=== PATIENT | female | born 1990 | race African-American/Black ===

== ENCOUNTER 2020-06-07 17:42 | Emergency (ER) | payer BC ==
[~2020-06-07] VITALS: Ht 165.1 cm; Wt 95.4 kg
--- NOTE | 2020-06-07 18:39 | PHYS DOC ---
Past History Past Medical History: A-Fib, Migraines Alcohol Use: None Adult General Chief Complaint Chief Complaint: HEADACHE HPI HPI Patient is a 29 year old female who presents with headache over the past 2 days. Patient states that she has had headaches that affect her forehead region off and on for her entire life, however states that this headache is different in that this headache has presented around the left orbit along with ringing in both the ears and also visual changes that she describes as an orange tint to the left eye, patient denies blurriness. Patient states that she had no relief with taking [id number] naproxen, stating she took 2 220 mg tablets at 4 AM this morning without relief. Patient states her 10 is a 7/10 pain on a 1-10 pain scale. Patient denies nausea, fatigue, muscle or body aches, new loss of taste or new loss of smell, diarrhea, vomiting, congestion or runny nose. Patient also denies cough or shortness of breath, chest pains, or swelling of her extremities. Patient denies any urinary problems, denies vaginal discharge, denies STI concerns. Patient denies back pains, pain in her joints, skin rashes, increased urination or increased thirst. She denies swelling of her glands, recent depressions, recent anxieties, homicidal or suicidal ideations. Patient denies having the COVID-19 virus and does not wish to be tested today. Patient denies a history of illicit drug use, denies smoking, denies drinking alcohol. Review of Systems Review of Systems Constitutional: Denies fever or chills Eyes: Denies change in visual acuity, redness, or eye pain, complains of seeing a orange tent from the right eye, denies blurriness HENT: Denies nasal congestion or sore throat, complains of ringing in the ears from both ears Respiratory: Denies cough or shortness of breath Cardiovascular: Denies chest pain, denies palpitations. GI: Denies abdominal pain, nausea, vomiting, bloody stools or diarrhea : Denies dysuria or hematuria [] Musculoskeletal: Denies back pain or joint pain [] Integument: Denies rash or skin lesions [] Neurologic: Complains of headache focused around the left orbit rating 7/10 on a 1-10 pain scale Psychiatric: Patient denies recent anxieties, depressions, homicidal or suicidal ideation. All other systems were reviewed and found to be within normal limits, except as documented in this note. Family History Family History Patient states maternal grandfather had pacemaker otherwise no significant family history. Current Medications Current Medications Patient reports taking 81 mg aspirin and 50 mg of metoprolol as needed when she felt her heart was doing flip-flops. Allergies Allergies Patient denies allergies to medications. Physical Exam Physical Exam Constitutional: Well developed, well nourished, no acute distress, non-toxic appearance. Patient photophobic. HENT: Normocephalic, atraumatic, bilateral external ears normal, oropharynx moist, no oral exudates, nose normal. Partial cerumen impaction bilateral ears however TMs visualized normal without bulging, intact. Eyes: PERRLA, EOMI, conjunctiva normal, no discharge. Bilateral pupils 4 mm Neck: Normal range of motion, no tenderness, supple, no stridor. [] Cardiovascular:Heart rate regular rhythm, no murmur [] Lungs & Thorax: Bilateral breath sounds clear to auscultation [] Abdomen: Bowel sounds normal, soft, no tenderness, no masses, no pulsatile masses. [] Skin: Warm, dry, no erythema, no rash. [] Back: No tenderness, no CVA tenderness. [] Extremities: No tenderness, no cyanosis, no clubbing, ROM intact, no edema. [] Neurologic: Alert and oriented X 3, normal motor function, normal sensory function, no focal deficits noted. [] Psychologic: Affect normal, judgement normal, mood normal. [] Current Patient Data Vital Signs Vital Signs Date Time Temp Pulse Resp B/P (MAP) Pulse Ox O2 Delivery O2 Flow Rate FiO2 06/07/20 17:55 98.3 88 16 159/85 (109) 98 Room Air Lab Results Laboratory Tests Test 06/07/20 18:51 06/07/20 18:52 06/07/20 19:00 Urine Collection Type Unknown Urine Color Yellow Urine Clarity Clear Urine pH 8.0 Urine Specific [place] 1.020 Urine Protein Neg Urine Glucose (UA) Neg mg/dL Urine Ketones (Stick) Neg mg/dL Urine Blood Trace Urine Nitrite Neg Urine Bilirubin Neg Urine Urobilinogen Dipstick 0.2 mg/dL Urine Leukocyte Esterase Neg Urine RBC 0 /HPF Urine WBC 0 /HPF Urine Squamous Epithelial Cells Mod /LPF Urine Bacteria 0 /HPF Bedside Urine HCG, Qualitative hcg negative White Blood Count 6.0 x10^3/uL Red Blood Count 4.97 x10^6/uL Hemoglobin 14.7 g/dL Hematocrit 44.9 % Mean Corpuscular Volume 91 fL Mean Corpuscular Hemoglobin 30 pg Mean Corpuscular Hemoglobin Concent 33 g/dL Red Cell Distribution Width 14.4 % Platelet Count 278 x10^3/uL Neutrophils (%) (Auto) 62 % Lymphocytes (%) (Auto) 28 % Monocytes (%) (Auto) 8 % Eosinophils (%) (Auto) 1 % Basophils (%) (Auto) 1 % Neutrophils # (Auto) 3.7 x10^3uL Lymphocytes # (Auto) 1.7 x10^3/uL Monocytes # (Auto) 0.4 x10^3/uL Eosinophils # (Auto) 0.1 x10^3/uL Basophils # (Auto) 0.1 x10^3/uL Sodium Level 140 mmol/L Potassium Level 4.1 mmol/L Chloride Level 103 mmol/L Carbon Dioxide Level 29 mmol/L Anion Gap 8 Blood Urea Nitrogen 7 mg/dL Creatinine 1.0 mg/dL Estimated GFR (Cockcroft-Gault) 78.8 BUN/Creatinine Ratio 7 Glucose Level 95 mg/dL Calcium Level 9.5 mg/dL Total Bilirubin 0.2 mg/dL Aspartate Amino Transf (AST/SGOT) 10 U/L Alanine Aminotransferase (ALT/SGPT) 18 U/L Alkaline Phosphatase 85 U/L Total Protein 8.6 g/dL Albumin 4.0 g/dL Albumin/Globulin Ratio 0.9 Current Medications Medications (Trade) Dose Ordered Sig/Aysha Route PRN Reason Start Time Stop Time Status Last Admin Dose Admin Sodium Chloride 1,000 ml @ 1,000 mls/hr 1X ONCE IV 06/07/20 18:45 06/07/20 19:44 DC 06/07/20 20:01 Diphenhydramine HCl (Benadryl) 25 mg 1X ONCE IVP 06/07/20 18:45 06/07/20 19:41 DC 06/07/20 19:59 Metoclopramide HCl (Reglan Vial) 10 mg 1X ONCE IVP 06/07/20 18:45 06/07/20 19:41 DC 06/07/20 19:58 Ketorolac Tromethamine (Toradol 30mg Vial) 30 mg 1X ONCE IVP 06/07/20 18:45 06/07/20 19:41 DC 06/07/20 19:58 EKG EKG [] Radiology/Procedures Radiology/Procedures REASON: HEADACHE WITH VISUAL CHANGES, TINNITUS PROCEDURE: CT HEAD WO CONTRAST Exam: CT head INDICATION: Headache with visual changes TECHNIQUE: Sequential axial images through the head were obtained without the administration of IV contrast. Comparisons: None FINDINGS: No focal parenchymal lesion or hemorrhage is identified. There is no midline shift or sulcal effacement. Patchy hypodensity in the periventricular white matter. No acute vascular territory infarction is identified. Hernández-white distinction is preserved. The ventricular system is within normal limits without compression hydrocephalus. The basal cisterns are well maintained. The visualized portions of the paranasal sinuses and mastoid air cells are well-pneumatized. No acute fractures. IMPRESSION: Mild small vessel ischemic change, technically age indeterminate without recent prior imaging. If there are concerns for acute ischemia MRI would better evaluate. Exposure: One or more of the following in the visualized dose reduction techniques were utilized for this examination: 1. Automated exposure control 2. Adjustment of the MA and/or KV according to patient size Use of iterative of reconstructive technique Electronically signed by: Nakul Vazquez MD (06/07/2020 7:29 PM) [id number] DICTATED AND SIGNED BY: NAKUL VAZQUEZ MD DATE: 06/07/201928 CC: ANGELO PARSONS APRN; PCP,NO ~ Heart Score Risk Factors: Risk Factors: DM, Current or recent (<one month) smoker, HTN, HLP, family history of CAD, obesity. Risk Scores: Risk Factors: DM, Current or recent (<one month) smoker, HTN, HLP, family history of CAD, obesity. Course & Med Decision Making Course & Med Decision Making Pertinent Labs and Imaging studies reviewed. (See chart for details) 29-year-old patient presents emergency department with a complaint of headache that focused around the left orbital area. Patient was concerned that while she has had headaches off and on her entire life she has never had a headache in this area. Patient also states that while the headache started 2 days ago, she started hearing a ringing in the right ear yesterday that progressed to both ears by the end of the day. Patient states that when she woke up this morning she noticed a orange tent from the right eye, however denied visual acuity changes, or blurriness. Patient states she does not wear contacts nor does she wear glasses. Patient states that she took 2 zzaf-jka-pecoisp Naprosyn's at approximately 4 in the morning and did not get any relief. The patient's initial vital signs were within normal limits except for her blood pressure was 156/110 in the right arm and 161/118 in the left arm per noninvasive blood pressure machine. The patient states that she has a history of A. fib but she does not take her metoprolol and aspirin as prescribed daily, stating that she only takes those medicines when she feels like her heart is doing flip-flops. The patient was worked up with labs, CAT scan of the head without contrast, and a headache cocktail of 1 L of normal saline, 30 mg of IV Toradol, 10 mg IV Reglan, 25 mg of Benadryl were given. Patient CT scan was concerning of small vessel disease with recommendation to follow-up with MRI. Upon reexamination of the patient she states her headache went from a 7/10 pain scale down to a 5/10 pain scale, discussed with patient I would consult with neurology to discuss inpatient admission for a follow-up MRI. Patient was amenable to this. I consulted and reviewed the case with Dr. Crenshaw neurology specialist at [facility] who did not recommend inpatient or outpatient admission, however recommended outpatient MRI. Upon discussing Dr. Crenshaw's recommendations with patient, patient states that her headache is now resolved and she wishes to go home. The patient did not show any strokelike symptoms nor complained of any strokelike signs and symptoms. This is unlikely an acute process as supported by CT interpretation and patient's improvement from a 7/10 pain headache to 0 pain. Patient is vital signs remained stable and within normal limits at discharge, blood pressure the left upper extremity was 149/75 per noninvasive blood pressure machine. This is most likely a headache of unknown cause. Discussed with patient strict follow-up instructions with either a neurologist or her primary care physician to have an MRI follow-up of the abnormal CT scan findings. Also discussed with patient strict medication compliance with her aspirin and metoprolol. Patient gave verbal understanding of home care instructions, follow-up for MRI, also medication compliance instructions. Patient gave verbal understanding of return to ER concerns, patient had no further questions or concerns. Patient discharged home without incident. Dragon Disclaimer Dragon Disclaimer This electronic medical record was generated, in whole or in part, using a voice recognition dictation system. Departure Departure: Impression: Primary Impression: Headache behind the eyes Additional Impressions: Abnormal CT of the head Bilateral tinnitus Visual color changes Disposition: 01 DC HOME SELF CARE/HOMELESS Condition: GOOD Referrals: PCP,NO (PCP) Patient Instructions: General Headache Without Cause Additional Instructions: We have discussed the CT scan performed of your brain, it is recommended that you follow-up with a primary care physician for outpatient MRI related to the findings. It is very important that you take your aspirin and your metoprolol every day as we discussed. Please return to the emergency department for worsening symptoms or further concerns. Keep your appointment with your analysis director. Problem Qualifiers ANGELO PARSONS APRN Jun 07, 2020 18:38
[2020-06-07] MEDS ORDERED: IV NORMAL SALINE 1,000ML 1,000 ML IV ONE (18:45)
[2020-06-07] MEDS ORDERED: KETOROLAC 30 MG/ML VIAL. IVP ONE (18:45)
[2020-06-07] MEDS ORDERED: METOCLOPRAMIDE HCL 10 MG/2 ML VIAL. IVP ONE (18:45)
[2020-06-07] MEDS ORDERED: diphenhydrAMINE 50 MG/ML VIAL IVP ONE (18:45)
[2020-06-07 19:18] LABS: CLARITY,URINE CLEAR; COLOR,URINE YELLOW; GLUCOSE,URINE NEG (NEG)
[2020-06-07 19:19] LABS: BACTERIA,URINE 0 /HPF (0-FEW); BILIRUBIN,URINE NEG (NEG); NITRITE,URINE NEG (NEG); RBC,URINE 0 /HPF (0-2); SQUAMOUS EPITHELIAL CELL,UR MOD /LPF; UROBILINOGEN,URINE 0.2 mg/dL (0.2 mg/dL); WBC,URINE 0 /HPF (0-4)
[2020-06-07 19:29] LABS: BASO # 0.1 x10^3/uL (0.0-0.2); BASO % 1 % (0-3); EOS # 0.1 x10^3/uL (0.0-0.7); EOS % 1 % (0-3); HEMATOCRIT 44.9 % (36.0-47.0); HEMOGLOBIN 14.7 g/dL (12.0-15.5); LYMPH # 1.7 x10^3/uL (1.0-4.8); LYMPH % 28 % (24-48); MEAN CORPUSCULAR HEMOGLOBIN 30 pg (25-35); MEAN CORPUSCULAR HGB CONC 33 g/dL (31-37); MEAN CORPUSCULAR VOLUME 91 fL (79-100); MONO # 0.4 x10^3/uL (0.0-1.1); MONO % 8 % (0-9); NEUT # 3.7 x10^3uL (1.8-7.7); NEUT % 62 % (31-73); PLATELET COUNT 278 x10^3/uL (140-400); RED BLOOD COUNT 4.97 x10^6/uL (3.50-5.40); RED CELL DISTRIBUTION WIDTH 14.4 % (11.5-14.5)
--- NOTE | 2020-06-07 19:32 | RAD ---
Exam: CT head INDICATION: Headache with visual changes TECHNIQUE: Sequential axial images through the head were obtained without the administration of IV contrast. Comparisons: None FINDINGS: No focal parenchymal lesion or hemorrhage is identified. There is no midline shift or sulcal effacement. Patchy hypodensity in the periventricular white matter. No acute vascular territory infarction is identified. Hernández-white distinction is preserved. The ventricular system is within normal limits without compression hydrocephalus. The basal cisterns are well maintained. The visualized portions of the paranasal sinuses and mastoid air cells are well-pneumatized. No acute fractures. IMPRESSION: Mild small vessel ischemic change, technically age indeterminate without recent prior imaging. If there are concerns for acute ischemia MRI would better evaluate. Exposure: One or more of the following in the visualized dose reduction techniques were utilized for this examination: 1. Automated exposure control 2. Adjustment of the MA and/or KV according to patient size Use of iterative of reconstructive technique Electronically signed by: Larry Walker MD (06/07/2020 7:29 PM) [id number]
[2020-06-07 19:37] LABS: CALCIUM 9.5 mg/dL (8.5-10.1); GFR 78.8; POTASSIUM 4.1 mmol/L (3.5-5.1)
[2020-06-07 19:43] LABS: ALBUMIN/GLOBULIN RATIO 0.9 (1.0-1.7); TOTAL BILIRUBIN 0.2 mg/dL (0.2-1.0); TOTAL PROTEIN 8.6 g/dL (6.4-8.2)
[2020-06-07 20:05] VITALS: BP 174/82
== END 2020-06-07 21:00 | disposition home or self-care (01) ==
LOC: ER 17:42
DX: G43.909 Migraine, unspecified, not intractable, without status migrainosus (principal); H93.13 Tinnitus, bilateral; R94.8 Abnormal results of function studies of other organs and systems; I48.20 Chronic atrial fibrillation, unspecified
CPT/HCPCS: 36415; 70450; 80053; 81001; 81025; 85025; 96361; 96374; 96375; 99284; J1200; J1885; J2765; J7030